=== PATIENT | female | born 1980 | race Caucasian/White ===

== ENCOUNTER 2017-04-28 21:54 | Emergency (ER) | payer SELFPAY ==
[2010-07-30 07:05] VITALS: BMI 29.2
[2017-04-28 22:13] LABS: BASOPHILS 0.1 % (0-2); EOSINOPHILS 0.5 % (0-7); HEMATOCRIT 35.3 % (36.0-48.0); HEMOGLOBIN 11.1 g/dL (12-16); IMMATURE GRANULOCYTES 0.3 % (0-5); LYMPHOCYTES 24.8 % (15-50); MCH 24.3 pg (26.0-34.0); MCHC 31.4 g/dL (31.0-37.0); MCV 77.4 fL (80.0-100.0); MEAN PLATELET VOLUME 11.1 fL (7.4-10.4); MONOCYTES 5.6 % (2-11); NEUTROPHILS 68.7 % (40-80); RBC 4.56 10x6/uL (4.00-5.40); RDW 15.8 % (11.5-14.5); WBC 10.2 10x3/uL (4.8-10.8)
[2017-04-28 22:28] LABS: ALBUMIN 3.4 g/dL (3.4-5.0); ALKALINE PHOSPHATASE 41 U/L (46-116); ALT (SGPT) 16 U/L (10-68); BILIRUBIN - TOTAL 0.19 mg/dL (0.2-1.3); CALC OSMOLALITY 282 mosm/kg (275-300); CALCIUM 8.7 mg/dL (8.5-10.1); CARBON DIOXIDE 27.1 mmol/L (21.0-32.0); CHLORIDE - SERUM 105 mmol/L (98-107); CREATININE - SERUM 0.7 mg/dL (0.6-1.3); GLUCOSE 108 mg/dL (74-106); POTASSIUM - SERUM 3.5 mmol/L (3.5-5.1); PROTEIN - SERUM 7.3 g/dL (6.4-8.2); SODIUM 142 mmol/L (136-145); UREA NITROGEN 11 mg/dL (7-18); eGFR NON AFRICAN AMERICAN > 90 mL/min (90-120)
[2017-04-28 22:38] LABS: PLATELET COUNT 243 10x3/uL (130-400)
[2017-04-28 22:39] LABS: CHOLESTEROL, TOTAL 112 mg/dL (0-200); CKMB 0.5 U/L (0.0-3.6); CREATINE KINASE 76 UL (21-215); HDL CHOLESTEROL 56 mg/dL (32-96); LDL CHOLESTEROL 47 mg/dL (0-100); LDL-HDL RATIO 0.8 ratio (1.5-3.5); TRIGLYCERIDE 48 mg/dL (30-200); TROPONIN-I 0.045 ng/mL (0.000-0.060)
== END 2017-04-29 00:30 | disposition home or self-care (01) ==
LOC: D.ER 21:54
PROVIDERS: Emergency Medicine
DX: R07.89 Other chest pain (principal); J18.9 Pneumonia, unspecified organism; D64.9 Anemia, unspecified

== ENCOUNTER 2019-01-23 12:38 | Emergency (ER) | payer BC ==
[~2019-01-23] VITALS: Ht 160 cm; Wt 88.2 kg
[2019-01-23 12:55] VITALS: Ht 160 cm; Wt 88.2 kg
[2019-01-23] MEDS ORDERED: TUMERIC (12:57)
[2019-01-23] MEDS ORDERED: MILK THISTLE (12:58)
[2019-01-23] MEDS ORDERED: PROBIOTIC1 EAC1 PO (12:58)
[2019-01-23] MEDS ORDERED: [UNRECOGNIZED DRUG - OTHER] (12:58)
[2019-01-23] MEDS ORDERED: TORADOL10 MG PO (16:05)
[2019-01-23 16:20] VITALS: BP 121/68
== END 2019-01-23 16:20 | disposition home or self-care (01) ==
LOC: D.ER 12:38
DX: S81.811A Laceration without foreign body, right lower leg, initial encounter (principal); W26.8XXA Contact with other sharp object(s), not elsewhere classified, initial encounter; Y93.89 Activity, other specified; Y92.89 Other specified places as the place of occurrence of the external cause